=== PATIENT | male | born 1945 | race African-American/Black ===

== ENCOUNTER 2017-09-28 02:55 | Inpatient (IN) | payer MEDICARE, MEDICAID ==
[2017-09-28] MEDS ORDERED: Morphine 10 MG/ML VIAL ONE (03:31)
[2017-09-28] MEDS ORDERED: Ondansetron HCl/PF 4 MG/2 ML Vial ONE (03:31)
[2017-09-28 03:55] LABS: #Eosinphils 0.2 thou/uL (0.0-0.7); #Lymphocytes 1.2 thou/uL (1.20-3.40); #Monocytes 0.4 thou/uL (0.11-0.59); #Neutrophils 9.1 thou/uL (1.40-6.50); %Basophils 0.2 % (0.0-1.0); %Eosinophils 1.7 % (0.0-10.0); %Lymphocytes 11.3 % (21.0-51.0); %Monocytes 3.3 % (0.0-10.0); Hematocrit 38.3 % (42.0-52.0); Mean Platelet Volume 7.5 fL (7.4-10.4); Red Blood Cell (RBC) Count 4.19 mill/uL (4.70-6.10); White Blood Cell (WBC) Count 10.9 thou/uL (4.8-10.8)
[2017-09-28 04:16] LABS: ALT (SGPT) 15 U/L (8-55); AST (SGOT) 12 U/L (5-34); Alkaline Phosphatase 109 U/L (40-150); Anion Gap 16 mmol/L (10-20); BUN (Urea Nitrogen) 26 mg/dL (8.4-25.7); Bilirubin, Total 0.3 mg/dL (0.2-1.2); CK (CPK) 112 U/L (30-200); Calc. Creatinine Clearance 0 mL/min (70-130); Calcium 10.2 mg/dL (7.8-10.44); Carbon Dioxide 23 mmol/L (23-31); Chloride 100 mmol/L (98-107); Estimated GFR-MDRD 58; Globulin 3.4 g/dL (2.4-3.5); Lipase 805 U/L (8-78); Protein, Total 7.8 g/dL (5.8-8.1)
[2017-09-28 04:19] LABS: Troponin I Less than 0.010 ng/mL (< 0.028)
[2017-09-28] MEDS ORDERED: Ondansetron HCl/PF 4 MG/2 ML Vial IVP PRN (06:17)
[2017-09-28] MEDS ORDERED: Ondansetron ODT 4 MG TAB SL PRN (06:17)
[2017-09-28] MEDS ORDERED: Sodium Chloride 0.9% 1,000 ML IV SCH (06:17)
[2017-09-28] MEDS ORDERED: Acetaminophen 325 MG TAB PO PRN (06:17)
[2017-09-28] MEDS ORDERED: Morphine 10 MG/ML VIAL SLOW IVP PRN ×2 (06:18→23:10)
[2017-09-28] MEDS ORDERED: Dextrose 50% Abboject 50 ML SYRINGE SLOW IVP PRN (06:51)
[2017-09-28] MEDS ORDERED: Dextrose 5% in Water 1,000 ML IV PRN (06:51)
[2017-09-28] MEDS ORDERED: metFORMIN 500 MG TAB PO SCH (08:00)
[2017-09-28] MEDS: Famotidine/PF 20 mg/2ml Vial SLOW IVP SCH ×2 (08:32→21:06)
[2017-09-28] MEDS: Metoprolol Tartrate 50 MG TAB PO SCH ×2 (08:32→21:04)
[2017-09-28] MEDS: Sodium Chloride 0.9% 1,000 ML IV SCH ×3 (08:54→21:26)
[2017-09-28] MEDS ORDERED: Simvastatin 5 MG TAB PO SCH (09:00)
[2017-09-28] MEDS ORDERED: Hydrochlorothiazide 25 MG TAB PO SCH (09:00)
[2017-09-28] MEDS ORDERED: FLU VACC TS2017-18 (>65YR) 0.5 ML SYRINGE IM ONE (09:00)
[2017-09-28] MEDS ORDERED: Lisinopril 20 MG TAB PO SCH (09:00)
[2017-09-28] MEDS ORDERED: Aspirin 81 mg Enteric Coated Tablet PO SCH (09:00)
[2017-09-28] MEDS ORDERED: Non-Formulary Item 1 EACH (Lovastatin [Lovastatin] 20 MG) PO SCH (09:00)
--- NOTE | 2017-09-28 10:12 | HP-2 ---
DATE OF ADMISSION: 09/28/2017 DATE OF SERVICE: 09/28/2017 LOCATION: [place], [place]. CO-SIGNER: Dr. Cristhian Calvin. CODE STATUS: FULL. PRIMARY CARE PHYSICIAN: Primo Galeano\\[facility], Dr. Damico. ATTENDING PHYSICIAN: Dr. Cristhian Calvin. RESIDENT PHYSICIAN: Dr. Gilbert Thomas D.O. HISTORIAN: History provided by patient. CHIEF COMPLAINT: Abdominal pain. HISTORY OF PRESENT ILLNESS: A 71-year-old male with past medical history of hypertension, hyperlipi demia, prior episodes of pancreatitis, questionable history of alcohol abuse, peripheral vascular di sease, status post right BKA and type 2 diabetes who presents with 1 day history of acute onset abdo rae pain, nausea, vomiting, which started last night. The patient reports he may have \\\\"had a sh ot\\\\" last night prior to onset of signs and symptoms. The patient denies fever, chills, chest pain , shortness of breath, diarrhea and constipation. ER: In the ER, the patient was given normal saline 1 liter bolus and morphine for pain. PAST MEDICAL HISTORY: Type 2 diabetes, hypertension, hyperlipidemia, coronary artery disease, perip heral vascular disease, alcohol abuse, tobacco abuse. PAST SURGICAL HISTORY: Right BKA. ALLERGIES: No known drug allergies. MEDICATIONS: 1. Statin. 2. Levemir. 3. Hydrochlorothiazide. 4. Aspirin. 5. Lisinopril. 6. Metoprolol. FAMILY HISTORY: Deferred. SOCIAL HISTORY: Patient is a 2 packs per week smoker, unknown how many years. Positive history of alcohol abuse, currently admits to drinking, but unknown amount. Denies drug use. REVIEW OF SYSTEMS: General: The patient complains of appetite changes. Denies fever, chills. Eye s: Denies vision changes. ENT: No nasal congestion or rhinorrhea. Respiratory: No cough, conges tion, shortness of breath. Cardiovascular: No chest pain, palpitations or edema. Gastrointestinal : The patient complaints of nausea, vomiting, abdominal pain. Denies diarrhea, constipation, GI bl eeding. Genitourinary: The patient complains of dysuria. Musculoskeletal: The patient complains of pain, tenderness. Neurologic: Denies weakness, numbness and syncope. PHYSICAL EXAMINATION: VITAL SIGNS: Blood pressure 134/71, pulse 76, respirations 16, T-max 97.9, pulse ox 98% on room air , current weight 70 kilograms. GENERAL: The patient is lethargic and in no acute distress, resting comfortably in bed, well-nouris hed in appearance. Appropriately interactive. NECK: Supple, without lymphadenopathy, no thyromegaly. CARDIOVASCULAR: Regular rate and rhythm. No murmurs, rubs or gallops. Radial pulses 2+, left peda l pulse 2+. RESPIRATORY: Normal effort, no retractions. LUNGS: Clear to auscultation bilaterally. No nasal flaring, no paradoxical breathing. SKIN: Warm and dry. No cyanosis or lesions. ABDOMEN: Soft, tender to palpation. Hypoactive bowel sounds in all 4 quadrants. No masses, disten tion, organomegaly appreciated. There is moderate guarding, but no rebound tenderness. EXTREMITIES: No clubbing, no cyanosis, no edema. He does have a right BKA. MUSCULOSKELETAL: Structures within normal limits. Tone within normal limits. NEUROLOGIC: No focal deficits. LABORATORY DATA: White blood cell count 10.1, hemoglobin 11.9, hematocrit 38.3, platelets 265. Sod ium 135, potassium 4.0, chloride 100, bicarbonate 23, BUN 26, creatinine 1.46, glucose 315, calcium 10.2, total protein 7.8, albumin 4.4, AST 12, ALT 15, alkaline phosphatase 109, total bilirubin 0.3, lipase 805. Troponins less than 0.010, CK-MB 2.0, CK 112. ASSESSMENT AND PLAN: 1. Acute pancreatitis. Angel score of 2. The patient was continued on clear liquid diet. We gabriela l check an alcohol level, check triglycerides. He will be given morphine 4 mg q.4 hours p.r.n. for pain. Recheck in a.m. lipase and advance diet as tolerated. 2. History of alcohol abuse. The patient will be placed on ASE protocol. He will be monitored for signs and symptoms of withdrawal. 3. Hyperlipidemia. Resume home medications. 4. Type 2 diabetes. Resume home medications. 5. Hypertension. Resume home medications. 5. Prophylaxis. The patient will be given sequential compression devices and IV Pepcid for gastroi ntestinal and deep venous thrombosis prophylaxis respectively. DISPOSITION AND LENGTH OF HOSPITAL STAY: The patient is stable. Estimated length of stay greater t martin or equal to 2 days. Symptomatic medication will be provided. History and physical exam as well as management was discussed with Dr. Cristhian Calvin who agrees with t he above history and physical, assessment and plan unless otherwise noted in his addendum.
[2017-09-28] MEDS ORDERED: Insulin Regular 300 UNITS/3 ML VIAL SC PRN (10:33)
[2017-09-28] MEDS ORDERED: Iopamidol 370 76% 100 ML VIAL ONE (13:32)
--- NOTE | 2017-09-28 15:39 | CT ---
CT ABDOMEN AND PELVIS WITH IV CONTRAST: INDICATIONS: Pancreatitis. COMPARISON: Prior abdominal CT dated 02/22/2010. FINDINGS: There is inflammatory stranding surrounding the pancreas, consistent with the patient's history of pa ncreatitis. There is bibasilar air space opacity, suspicious for subsegmental volume loss. The liver demonstrates an area of focal fatty infiltration near the falciform ligament. The spleen a ppears within normal limits. The adrenal glands appear within normal limits. There is a 2.6 cm cyst involving the inferior pole of the right kidney, which is stable. There is an exophytic left mid re nal cyst, measuring 3.1 cm, on image #34 series 2. There are renal vascular calcifications bilaterally. No drainable fluid collection is grossly evident. The bladder is moderately distended with wall thickening. The prostate is enlarged, measuring 5.5 cm . There are a few scattered diverticula involving the colon. The small bowel is of normal caliber. No definite acute osseous abnormality is evident. There is scattered degenerative osteoarthritic holder e. 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 IMPRESSION: 1. Inflammatory stranding seen surrounding the pancreas, consistent with the patient's history of pa ncreatitis. The pancreas does appear to enhance without evidence of necrosis or drainable fluid sherlyn ection. 2. Bibasilar patchy air space opacities may represent subsegmental atelectasis. Recommend correlati on with any symptoms or signs of early pneumonia, however. 3. Bilateral renal cysts. 4. Colonic diverticulosis. 5. Wall thickening involving a moderately distended bladder may reflect sequela of chronic bladder o utlet obstruction. Recommend correlation. 6. 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 POS: [facility]
[2017-09-28] MEDS ORDERED: Insulin Detemir 100 UNITS/ML 45 UNITS in Pre-Filled Syringe 1 EACH SC SCH (21:00)
[2017-09-28] MEDS: Atorvastatin Calcium 40 MG TAB PO SCH (21:05)
[2017-09-28] MEDS ORDERED: HumaLOG 300 UNITS/3 ML VIAL SC SCH (21:14)
[2017-09-28] MEDS ORDERED: HumaLOG 300 UNITS/3 ML VIAL SC PRN (21:20)
[2017-09-28] MEDS ORDERED: Insulin Detemir 100 UNITS/ML 50 UNITS in Pre-Filled Syringe 1 EACH SC SCH (22:00)
[2017-09-28] MEDS ORDERED: MORPHINE 10 MG/ML SYRINGE IV PRN (22:35)
[2017-09-29] MEDS: Sodium Chloride 0.9% 1,000 ML IV SCH ×2 (06:00→12:19)
--- NOTE | 2017-09-29 06:09 | PDOC.FM ---
- Subjective Subjective: Patient doing well this AM. No significant overnight events. Tolerating clear liquid diet. No nausea or vomiting. No abdominal pain. Discussed necessity for alcohol cessation. Patient in understanding. - Objective MAR Reviewed: Yes Vital Signs & Weight: Vital Signs (12 hours) Temp Pulse Resp BP Pulse Ox 09/29/17 04:00 98.5 F 78 20 188/97 H 99 09/29/17 00:00 98.7 F 72 20 175/93 H 100 09/28/17 20:00 98.9 F 79 20 99 09/28/17 19:44 98.9 F 79 20 191/92 H 99 Weight Weight 69.57 kg I&O: 09/27/17 09/28/17 09/29/17 06:59 06:59 06:59 Intake Total 1860 Output Total 650 Balance 1210 Result Diagrams: 09/28/17 03:40 09/28/17 03:40 EKG Reviewed by me: No Radiology Reviewed by me: No <Yasmeen To - Last Filed: 09/29/17 07:48> - Objective Vital Signs & Weight: Vital Signs (12 hours) Temp Pulse Resp BP BP Pulse Ox 09/29/17 08:37 194/91 H 09/29/17 08:00 98.8 F 74 16 194/91 H 100 09/29/17 04:00 98.5 F 78 20 188/97 H 99 09/29/17 00:00 98.7 F 72 20 175/93 H 100 Weight Weight 153 lb 6 oz I&O: 09/28/17 09/29/17 09/30/17 06:59 06:59 05:59 Intake Total 1860 Output Total 650 Balance 1210 Result Diagrams: 09/28/17 03:40 09/28/17 03:40 <Mayo Babin - Last Filed: 09/29/17 10:31> Phys Exam - Physical Examination Constitutional: NAD HEENT: PERRLA, moist MMs Neck: supple Respiratory: no wheezing, no rales, no rhonchi, clear to auscultation bilateral Cardiovascular: RRR 2/6 systolic murmur Gastrointestinal: soft, non-tender, no distention, positive bowel sounds Musculoskeletal: pulses present right below knee amputation Neurological: moves all 4 limbs Psychiatric: normal affect, A&O x 3 Skin: no rash, cap refill <2 seconds <Yasmeen To - Last Filed: 09/29/17 07:48> Dx/Plan (1) Acute pancreatitis Code(s): K85.90 - ACUTE PANCREATITIS WITHOUT NECROSIS OR INFECTION, UNSP Status: Acute Plan: -Lipase 800 -Recurrent -Angel score of 2 yesterday -Held HCTZ as potential cause of pancreatitis -Patient known EtOH abuser; denies it currently -RUQ U/S 3 months ago negative -CT abdomen/pelvis; no necrosis or pseudocyst -Morphine q4h PRN for pain -Clear liquid diet; consider advancing (2) Coronary artery disease Code(s): I25.10 - ATHSCL HEART DISEASE OF [place] CORONARY ARTERY W/O ANG PCTRS Status: Acute Plan: -Continue home medications (3) Alcohol abuse Code(s): F10.10 - ALCOHOL ABUSE, UNCOMPLICATED Status: Acute Plan: -Likely cause of pancreatitis -Patient denies EtOH abuse -Last hospitalization, /girlfriend asked that he be placed on alcohol withdrawal precautions (4) Tobacco abuse Code(s): Z72.0 - TOBACCO USE Status: Acute Plan: -Section Chief on cessation (5) Alcohol abuse Code(s): F10.10 - ALCOHOL ABUSE, UNCOMPLICATED Status: Chronic (6) BPH (benign prostatic hyperplasia) Code(s): N40.0 - BENIGN PROSTATIC HYPERPLASIA WITHOUT LOWER URINRY TRACT SYMP Status: Chronic Plan: -Chronic bladder changes seen on CT abdomen/pelvis -Currently, no urinary retention -Continue flomax -Monitor I&O's (7) HLD (hyperlipidemia) Code(s): E78.5 - HYPERLIPIDEMIA, UNSPECIFIED Status: Chronic Plan: -Continue home medications (8) HTN (hypertension) Code(s): I10 - ESSENTIAL (PRIMARY) HYPERTENSION Status: Chronic Plan: -Continue home medications -D/c'd HCTZ for pancreatitis, will need to add a different BP regimen (9) Type 2 diabetes mellitus Status: Chronic Plan: -Continue home medications -SSI -accuchecks <Yasmeen To - Last Filed: 09/29/17 07:48> Attending Addendum - Attending Addendum I personally evaluated the patient and discussed the management with [ Yousuf] I agree with the History, Examination, Assessment and Plan documented above with any addition or exceptions noted below. Advancing diet today. Plan for discharge home if tolerating full diet. <Mayo Babin - Last Filed: 09/29/17 10:31>
[2017-09-29] MEDS: Famotidine/PF 20 mg/2ml Vial SLOW IVP SCH ×2 (08:36→19:53)
[2017-09-29] MEDS: Metoprolol Tartrate 50 MG TAB PO SCH ×2 (08:37→19:50)
[2017-09-29] MEDS ORDERED: Lisinopril 10 MG TAB PO SCH (09:00)
[2017-09-29] MEDS ORDERED: hydrALAZINE 20 MG/ML VIAL SLOW IVP PRN (10:51)
[2017-09-29] MEDS ORDERED: Amlodipine 10 MG TAB PO SCH (11:00)
[2017-09-29 16:29] VITALS: BMI 23.6
[2017-09-29 19:29] VITALS: BP 172/74
[2017-09-29 19:50] VITALS: TEMP 98.3
[2017-09-29] MEDS: Atorvastatin Calcium 40 MG TAB PO SCH (19:51)
[2017-09-29] MEDS ORDERED: Insulin Detemir 100 UNITS/ML 50 UNITS in Pre-Filled Syringe 1 EACH SC SCH (21:00)
[2017-09-30] MEDS ORDERED: Amlodipine 10 MG TAB PO SCH (09:00)
--- NOTE | 2017-10-01 13:06 | DIS-2 ---
DATE OF ADMISSION: 09/28/2017 DATE OF DISCHARGE: 09/29/2017 RESIDENT: Yasmeen To DO ADMITTING ATTENDING: Natalie Joseph M.D. DISCHARGE ATTENDING: Mayo Babin M.D. CONSULTATIONS: None. PROCEDURES: Abdomen/pelvis CT shows inflammatory stranding around the pancreas consistent with pancreatitis. There is no evidence of necrosis or drainable fluid collection. There are bibasilar patchy airspace opacities which may represent subsegmental atelectasis. Bilateral renal cysts were present. The patient does have colonic diverticulosis. There is some wall thickening involving moderately distended bladder which may reflect chronic bladder outlet obstruction. 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 PRIMARY DIAGNOSES: Acute pancreatitis. SECONDARY DIAGNOSES: 1. Coronary artery disease. 2. Alcohol abuse. 3. Tobacco abuse. 4. Benign prostatic hyperplasia. 5. Hyperlipidemia. 6. Hypertension. 7. Type 2 diabetes mellitus. 8. Right below-knee amputation. DISCHARGE MEDICATIONS: 1. Amlodipine 5 mg oral daily. 2. Aspirin 81 mg oral daily. 3. Lovastatin 20 mg oral daily. 4. Metformin 1000 mg oral b.i.d. 5. Glipizide 2 tablets oral twice daily. 6. Trazodone 50 mg oral at bedtime. 7. Albuterol sulfate 2 puffs inhalation every 6 hours as needed. 8. Sucralfate 1 gram oral before meals. 9. Lisinopril 20 mg oral twice daily. 10. Metoprolol tartrate 50 mg oral twice daily. 11. Tamsulosin 0.5 mg oral at bedtime. 12. Insulin detemir 100 units per mL 45 units subc every evening was changed to 50 units subcu every evening. DISCHARGE MEDICATIONS: Hydrochlorothiazide 25 mg oral twice daily. HISTORY OF PRESENT ILLNESS AND HOSPITAL COURSE: This is a 71-year-old male with past medical history of hypertension, hyperlipidemia, and prior episodes of pancreatitis who presented with 1 day history of acute onset abdominal pain, nausea, vomiting. Patient reported that he had been drinking prior to onset of symptoms. He has a questionable history of alcohol abuse. The patient denies any fevers, chills, chest pain, shortness of breath, diarrhea or constipation and he was started on normal saline in the emergency room, morphine for pain. The patient remained stable throughout the course of his hospital stay. Lipase on admission was noted to be 805. It down trended to 92 on the second day. Patient has a history of pancreatitis, presumably secondary to alcohol abuse, although he denied alcohol abuse on this admission. Last time he was admitted for pancreatitis his asked that he may be placed on alcohol withdrawal precautions as she was concerned because of the amount that he drinks at home. The patient takes hydrochlorothiazide. This was discontinued during this hospitalization as potential cause of pancreatitis. The patient had a right upper quadrant ultrasound at last admission a few months ago which was normal. The patient's diet was advanced as tolerated. He was able to tolerate p.o. without any difficulty. He denied any nausea or vomiting on the day of discharge. Additionally, he had good urinary output and did not complain of any urinary retention. CT abdomen and pelvis was performed to rule out any pseudocyst or necrotizing pancreatitis. There is no evidence of either of these findings. Patient was cleared for discharge once tolerating regular diet. DISPOSITION: Stable. DISCHARGE INSTRUCTIONS: 1. Location: Home. 2. Diet: Consistent carbohydrate diet, heart healthy diet. 3. Activity: As tolerated. 4. Followup: The patient is to follow up with primary care physician at [facility] within the next 7 days. Of note, his insulin was changed to 50 units from 45 units. This may need to be titrated as an outpatient. Additionally, hydrochlorothiazide was discontinued due to potential cause of pancreatitis and amlodipine was started at 5 mg oral daily during this admission. MTDD
--- NOTE | 2017-10-06 12:21 | EKG ---
Test Reason : Blood Pressure : / mmHG Vent. Rate : 088 BPM Atrial Rate : 088 BPM P-R Int : 162 ms QRS Dur : 094 ms QT Int : 374 ms P-R-T Axes : 060 025 062 degrees QTc Int : 452 ms Normal sinus rhythm Possible Inferior infarct , age undetermined Abnormal ECG Confirmed by LUIS HU, STAN ([id number]), pictures editor ETTA CELIS ([id number]) on 10/06/2017 12:21:00 PM Referred By: Confirmed By:STAN SMITH MD
== END 2017-09-29 20:07 | disposition home health service (06) | DRG 440 ==
LOC: ERS 02:55 → T4-B 06:02
PROVIDERS: ADMIT Family Medicine; ATTEND Family Medicine
DX: K85.90 Acute pancreatitis without necrosis or infection, unspecified (principal); I10 Essential (primary) hypertension; E78.5 Hyperlipidemia, unspecified; E11.9 Type 2 diabetes mellitus without complications; I73.9 Peripheral vascular disease, unspecified; Z89.511 Acquired absence of right leg below knee; N40.0 Benign prostatic hyperplasia without lower urinary tract symptoms; F17.210 Nicotine dependence, cigarettes, uncomplicated
CPT/HCPCS: 36415; 36416; 74177; 80053; 80061; 80307; 82550; 82553; 83615; 83690; 84484; 85025; 93005; 96361; 96374; 96375; A4216; J0360; J1815; J2270; J2405; S0028

== ENCOUNTER 2017-10-10 16:11 | Emergency (ER) | payer MEDICARE, MEDICAID ==
[2017-10-10 16:44] LABS: #Basophils 0.1 thou/uL (0.0-0.2); #Eosinphils 0.5 thou/uL (0.0-0.7); #Lymphocytes 2.3 thou/uL (1.20-3.40); #Monocytes 0.4 thou/uL (0.11-0.59); #Neutrophils 9.5 thou/uL (1.40-6.50); %Basophils 0.8 % (0.0-1.0); %Lymphocytes 17.7 % (21.0-51.0); %Monocytes 3.1 % (0.0-10.0); Hematocrit 40.8 % (42.0-52.0); Red Blood Cell (RBC) Count 4.39 mill/uL (4.70-6.10); White Blood Cell (WBC) Count 12.8 thou/uL (4.8-10.8)
[2017-10-10 17:06] LABS: ALT (SGPT) 16 U/L (8-55); AST (SGOT) 13 U/L (5-34); Alkaline Phosphatase 114 U/L (40-150); Anion Gap 20 mmol/L (10-20); BUN (Urea Nitrogen) 28 mg/dL (8.4-25.7); Bilirubin, Total 0.2 mg/dL (0.2-1.2); Calc. Creatinine Clearance 0 mL/min (70-130); Carbon Dioxide 24 mmol/L (23-31); Chloride 97 mmol/L (98-107); Estimated GFR-MDRD 46; Protein, Total 8.7 g/dL (5.8-8.1)
== END 2017-10-10 18:06 | disposition home or self-care (01) ==
LOC: ERS 16:11
DX: E11.65 Type 2 diabetes mellitus with hyperglycemia (principal); E78.5 Hyperlipidemia, unspecified; I10 Essential (primary) hypertension; F17.210 Nicotine dependence, cigarettes, uncomplicated; Z79.4 Long term (current) use of insulin
CPT/HCPCS: 36415; 36416; 80053; 85025; 96360

== ENCOUNTER 2019-04-07 16:13 | Emergency (ER) | payer MEDICARE, OTHER ==
[2019-04-07 16:29] LABS: Base Excess-Venous -15.8 mmol/L (-2.0 to 3.0); Bicarbonate (HCO3v) 13.1 mmol/L (22.0-28.0); CO2 Tension (PvCO2) 41.2 mmHg (40.0-50.0); Calcium, Ionized 1.16 mmol/L (See Comments:); Chloride 102 mmol/L (98-107); Glucose 557 mg/dL (83-110); Hemoglobin - Calc 13.9 g/dL (14.0-18.0); Lactate 10.48 mmol/L (0.50-2.20); O2 Tension (PvO2) 44.5 mmHg (35.0-45.0); Potassium 3.8 mmol/L (3.5-5.1); Sodium 136 mmol/L (138-145); T. Carbon Dioxide 14.4 mmol/L (22.0-28.0); pH (Venous) 7.111 (7.320-7.430); vO2 Saturation-calc 64.6 % (60.0-85.0)
[2019-04-07] MEDS ORDERED: Calcium Chloride 1 GM/10 ML Abboject SYRINGE ONE (18:00)
[2019-04-07] MEDS ORDERED: EPINEPHrine 1 MG/10 ML Abboject SYRINGE ONE (18:00)
[2019-04-07] MEDS ORDERED: Sodium Bicarb 50 MEQ/50 ML VIAL ONE (18:00)
== END 2019-04-07 16:26 | disposition expired ==
LOC: ERS 16:13
DX: I46.9 Cardiac arrest, cause unspecified (principal); E11.9 Type 2 diabetes mellitus without complications
CPT/HCPCS: 31500; 36416; 82330; 82435; 82565; 82803; 82947; 83605; 84132; 84295; 85014; 92950; 96374; 96375; J0171; J0282